=== PATIENT | male | born 1945 | race American Indian/Alaskan Native ===

== ENCOUNTER 2017-11-19 16:37 | Observation (INO) | payer MEDICARE, BC ==
--- NOTE | 2017-11-19 17:57 | ED PDOC ---
Arrival/HPI - General Chief Complaint: Chest Pain Time Seen by Provider: 11/19/17 16:49 Historian: Patient - History of Present Illness Narrative History of Present Illness (Text): 11/19/17 17:27 Patient is a 72 yo male states he has intermittent anterior sharp chest pain for "the past week". Pain is worse with certain movements and with breathing. States pain is not worse with exertion. No calf pain or swelling. No associated nausea or vomiting. Patient sent for evaluation with Dr. Gordon after pain has been persistent intermittently. 11/19/17 19:19 Past Medical History - Infectious Disease Hx of Infectious Diseases: None - Tetanus Immunization Tetanus Immunization: Unknown - Past Medical History Past Medical History: No Previous - Cardiac Hx Hypertension: Yes - Neurological Hx Neurological Disorder: No - HEENT Hx HEENT Disorder: No - Endocrine/Metabolic Hx Diabetes Mellitus Type 1: Yes (BORDERLINE) - Hematological/Oncological Hx Cancer: Yes (prostate) - Integumentary Hx Dermatological Disorder: No - Musculoskeletal/Rheumatological Hx Falls: No - Genitourinary/Gynecological Hx Genitourinary Disorders: Yes Hx Prostate Problems: Yes (PROSTATE CA WITH SURGERY) - Psychiatric Hx Depression: No Hx Emotional Abuse: No Hx Physical Abuse: No Hx Substance Use: No - Anesthesia Hx Anesthesia: No Hx Anesthesia Reactions: No Hx Malignant Hyperthermia: No - Suicidal Assessment Feels Threatened In Home Enviroment: No Family/Social History Family/Social History: Unknown Family HX Smoking Status: Former Smoker Hx Alcohol Use: Yes (OCCASIONAL WINE) Hx Substance Use: No Hx Substance Use Treatment: No Allergies/Home Meds Allergies/Adverse Reactions: Allergies No Known Allergies Allergy (Verified 09/26/14 05:03) Home Medications: Home Meds Medication Instructions Recorded Confirmed Doxazosin Mesylate 4 mg PO DAILY 09/12/13 11/19/17 Amlodipine Bes/Olmesartan Med 1 tab PO DAILY 11/19/17 11/19/17 [Benita 10 mg-40 mg] Doxazosin Mesylate 2 mg PO DAILY 11/19/17 11/19/17 Mirabegron [Myrbetriq] 50 mg PO DAILY 11/19/17 11/19/17 Nebivolol [Bystolic] 10 mg PO DAILY 11/19/17 11/19/17 Review of Systems - Review of Systems Constitutional: absent: Fatigue, Fevers Eyes: absent: Vision Changes ENT: absent: Hearing Changes Respiratory: absent: SOB, Cough Cardiovascular: Chest Pain. absent: Palpitations, Edema, Calf Pain, [place]IE[place] Gastrointestinal: absent: Abdominal Pain, Nausea, Vomiting, Appetite Changes Genitourinary Male: absent: Dysuria, Frequency, Hematuria Musculoskeletal: absent: Back Pain, Neck Pain Skin: absent: Rash Neurological: absent: Headache, Dizziness, Focal Weakness Endocrine: absent: Polyuria Hemo/Lymphatic: absent: Easy Bleeding Psychiatric: absent: Depression Physical Exam Vital Signs Reviewed: Yes Vital Signs Temp Pulse Resp BP Pulse Ox 11/19/17 22:37 60 18 128/71 99 11/19/17 20:37 65 18 129/65 99 11/19/17 16:37 98.1 F 55 L 18 126/53 L 98 Temperature: Afebrile Pulse: Regular Appearance: Positive for: Well-Appearing, Non-Toxic Mental Status: Positive for: Alert and Oriented X 3 Finger Stick Blood Glucose: 83 - Systems Exam Head: Present: Atraumatic, Normocephalic Pupils: Present: PERRL Extroacular Muscles: Present: EOMI Mouth: Present: Moist Mucous Membranes Pharnyx: No: ERYTHEMA Neck: Present: Normal Range of Motion. No: Meningeal Signs, MIDLINE TENDERNESS Respiratory/Chest: Present: Clear to Auscultation. No: Respiratory Distress Cardiovascular: Present: Regular Rate and Rhythm, Murmurs Abdomen: Present: Normal Bowel Sounds. No: Tenderness, Distention, Peritoneal Signs Rectal: No: Rectal Tenderness Back: No: CVA Tenderness, Midline Tenderness Lower Extremity: Present: Edema, NORMAL PULSES. No: CALF TENDERNESS Neurological: Present: Motor Func Grossly Intact, Normal Sensory Function Skin: Present: Warm Psychiatric: Present: Alert, Normal Insight, Normal Concentration Medical Decision Making ED Course and Treatment: 11/19/17 19:21 Patient is a 72 yo male with intermittent chest discomfort for several days. Worse with position, not worse with exertion. Currently pain remains intermittent. Patient saw [facility] earlier this week and reportedly had abnormal EKG and was told to follow-up with avionics test technician. He was advised by PMD to be evaluated by Dr. Gordon, avionics test technician. Initial EKG here unremarkable. First set troponin unremarkable. No abdominal pain noted. NO rash or edema noted. Plan to admit to telemetry observation with cardiology consultation. Reassessment Condition: Re-examined - Lab Interpretations Lab Results: 11/19/17 17:20 11/19/17 18:13 Lab Results 11/19/17 18:13: Sodium 142, Potassium 4.6, Chloride 105, Carbon Dioxide 27, Anion Gap 15, BUN 25 H, Creatinine 1.3, Est GFR ( Amer) > 60, Est GFR ( Non-Af Amer) 54, Random Glucose 92, Calcium 9.5, Total Bilirubin 0.3, AST 32, ALT 23, Alkaline Phosphatase 40, Lactate Dehydrogenase 452, Total Creatine Kinase 252 H, CK-MB (CK-2) 1.6, CK-MB (CK-2) % Cancelled, Troponin I < 0.01, Total Protein 7.2, Albumin 3.9, Globulin 3.3, Albumin/Globulin Ratio 1.2 11/19/17 17:20: PT 13.3 H, INR 1.16 H, APTT 28.0 11/19/17 17:20: WBC 5.6, RBC 4.74, Hgb 13.1 L, Hct 39.6 L, MCV 83.5, MCH 27.6, MCHC 33.1, RDW 15.2 H, Plt Count 150, MPV 12.5 H, Gran % 37.6 L, Lymph % (Auto) 48.5 H, [place] % (Auto) 11.8 H, Eos % (Auto) 1.6, Baso % (Auto) 0.5, Gran # 2.09, Lymph # (Auto) 2.7, [place] # (Auto) 0.7 H, Eos # (Auto) 0.1, Baso # (Auto) 0.03 11/19/17 17:11: POC Glucose (mg/dL) 83 - RAD Interpretation Radiology Orders: 11/19/17 17:00 CHEST PORTABLE [RAD] Stat Assistant Shift Supervisor: Radiologist - EKG Interpretation EKG Interpretation (Text): 11/19/17 19:21 EKG at 16:45 sinus bradycardia with first degree av block, no acute st elevations Interpreted by ED Physician: Yes Type: 12 lead EKG - Medication Orders Current Medication Orders: Amlodipine Besylate (Norvasc) 10 mg PO DAILY JASON Doxazosin Mesylate (Cardura) 4 mg PO DAILY JASON Famotidine (Pepcid) 40 mg PO HS JASON Losartan Potassium (Cozaar) 100 mg PO DAILY JASON Non-Formulary Medication (Mirabegron [Myrbetriq]) 50 mg PO DAILY JASON Non-Formulary Medication (Nebivolol [Bystolic]) 10 mg PO DAILY JASON Discontinued Medications Aspirin (Aspirin Chewable) 81 mg PO STAT STA Stop: 11/19/17 17:03 Last Admin: 11/19/17 17:13 Dose: 81 mg Disposition/Present on Arrival - Present on Arrival Any Indicators Present on Arrival: No History of DVT/PE: No History of Uncontrolled Diabetes: No Urinary Catheter: No History of Decub. Ulcer: No History Surgical Site Infection Following: None - Disposition Have Diagnosis and Disposition been Completed?: Yes Diagnosis: Chest pain Disposition: HOSPITALIZED Disposition Time: 19:10 Patient Plan: Admission, Observation, Telemetry Condition: FAIR
[2017-11-19 18:05] LABS: BASO # 0.03 K/mm3 (0.0-2.0); BASO % 0.5 % (0.0-3.0); EOS # 0.1 (0.0-0.7); EOS % 1.6 % (1.5-5.0); GRAN # 2.09 (1.4-6.5); GRAN % 37.6 % (50.0-68.0); HEMOGLOBIN 13.1 g/dL (14.0-18.0); LYMPH # 2.7 (1.2-3.4); LYMPH % 48.5 % (22.0-35.0); MEAN CELL VOLUME 83.5 fl (80.0-105.0); MEAN CORPUSCULAR HEMOGLOBIN 27.6 pg (25.0-35.0); MEAN CORPUSCULAR HGB CONC 33.1 g/dl (31.0-37.0); MEAN PLATELET VOLUME 12.5 fl (7.0-11.0); MONO # 0.7 (0.1-0.6); MONO % 11.8 % (1.0-6.0); RBC 4.74 10^6/uL (3.5-6.1); RED CELL DISTRIBUTION WIDTH 15.2 % (11.5-14.5); WHITE BLOOD COUNT 5.6 10^3/ul (4.5-11.0)
[2017-11-19 18:13] LABS: INR 1.16 (0.93-1.08); PROTHROMBIN TIME 13.3 SECONDS (9.4-12.5)
[2017-11-19 18:25] LABS: TROPONIN I < 0.01 ng/mL
[2017-11-19 18:38] LABS: ALB/GLOB RATIO 1.2 (1.1-1.8); ALBUMIN 3.9 g/dL (3.0-4.8); ALT/SGPT 23 U/L (7-56); AST/SGOT 32 U/L (17-59); BLOOD UREA NITROGEN 25 mg/dL (7-21); CALCIUM 9.5 mg/dL (8.4-10.5); GFR AFRICAN-AMERICAN > 60; GFR NON-AFRICAN AMERICAN 54
[2017-11-19 18:44] LABS: CK-MB 1.6 ng/mL (0.0-3.6)
--- NOTE | 2017-11-19 20:50 | CP.PCM.HP ---
<Misti Wan - Last Filed: 11/19/17 20:58> History of Present Illness - History of Present Illness History of Present Illness: CC: sternal pain Patient is a 72 y/o with pmhx of htn, prostate cancer s/p resection presenting with mid sternal chest pain for [address] Gordon his histopathologist and he was told to come to the ED for evaluation. Patient states the chest pain is intermittent, mostly when he tries to bend down, and is reproducible, radiated to the right sided chest a little, non radiating to the back or left arm. The chest pain is described as sharp. Patient states this is the first time he has chest pain like this, took OTC anti acid with no relief. The chest pain is non excertional, and is not there at rest unless when he tries to lean forward. Denies shortness of breath, denies pillow orthopnea, states he went to the gym today and walked on the treadmill for 30 minutes without difficulties. Patient denies abdominal pain, nausea, vomiting or diarrhea, no heart burn, no pain with urination. Denies cough. Patient had ekg, echo and stress test back on January 2016 with stress test being within normal limit, sinus bradycardia on ekg and echo with normal LVEF. PMHx: htn, prostate cancer s/p resection, overactive bladder. PSHx: prostate surgery, penile implant 5-6 years ago, tonsillectomy, nasal and uvula surgeries, left breast surgery back in 1962. FMHx: no cardiac history in the family, mom at age of 100 from old age, dad had gastric cancer. Kids with no medical problems. Social: Denies prior history of tobacco, admits to occasional alcohol, denies elicit drug use. 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 Allergy: NKDA Home meds: bystolic, doxazosin, myrbetriq, brad. Present on Admission - Present on Admission Any Indicators Present on Admission: No History of DVT/PE: No History of Uncontrolled Diabetes: No Urinary Catheter: No Decubitus Ulcer Present: No History Surgical Site Infection Following: None Review of Systems - Constitutional Constitutional: absent: Anorexia, Chills, Fatigue, Fever, Frequent Falls, Increased Appetite, Lethargy, Malaise, Night Sweats, Snoring, Sleep Apnea, Weight Loss, Weakness - EENT Eyes: absent: Change in Vision Ears: absent: Dizziness Nose/Mouth/Throat: absent: Nasal Congestion, Sore Throat - Cardiovascular Cardiovascular: Chest Pain. absent: Chest Pain at Rest, Chest Pain with Activity, Claudication, Diaphoresis, Dyspnea, Dyspnea on Exertion, Edema, Irregular Heart Rhythm, Leg Edema, Lightheadedness, Palpitations, Paroxysmal Nocturnal Dyspnea, Pedal Edema, Radiating Pain, Rapid Heart Rate, Slow Heart Rate - Respiratory Respiratory: absent: Cough, Dyspnea, Hemoptysis, Wheezing - Gastrointestinal Gastrointestinal: absent: Abdominal Pain, Belching, Bloating, Constipation, Cramping, Diarrhea, Dyspepsia, Dysphagia, Heartburn, Nausea - Genitourinary Genitourinary: absent: Dysuria - Musculoskeletal Musculoskeletal: absent: Muscle Weakness - Integumentary Integumentary: absent: Rash - Neurological Neurological: absent: Dizziness, Weakness - Psychiatric Psychiatric: absent: Anxiety, Change in Appetite, Depression - Endocrine Endocrine: absent: Fatigue, Palpitations - Hematologic/Lymphatic Hematologic: absent: Easy Bleeding Past Patient History - Infectious Disease Hx of Infectious Diseases: None - Tetanus Immunizations Tetanus Immunization: Unknown - Past Social History Smoking Status: Never Smoked Alcohol: None Drugs: Denies Home Situation {Lives}: With Family - CARDIAC Hx Hypertension: Yes - NEUROLOGICAL Hx Neurological Disorder: No - HEENT Hx HEENT Problems: No - ENDOCRINE/METABOLIC Hx Diabetes Mellitus Type 1: Yes (BORDERLINE) - HEMATOLOGICAL/ONCOLOGICAL Hx Cancer: Yes (prostate) - INTEGUMENTARY Hx Dermatological Problems: No - MUSCULOSKELETAL/RHEUMATOLOGICAL Hx Falls: No - GENITOURINARY/GYNECOLOGICAL Hx Genitourinary Disorders: Yes Hx Prostate Problems: Yes (PROSTATE CA WITH SURGERY) - PSYCHIATRIC Hx Depression: No Hx Emotional Abuse: No Hx Physical Abuse: No Hx Substance Use: No - SURGICAL HISTORY Hx Surgeries: Yes (PROSTATE SX) - ANESTHESIA Hx Anesthesia: No Hx Anesthesia Reactions: No Hx Malignant Hyperthermia: No Meds Allergies/Adverse Reactions: Allergies Allergy/AdvReac Type Severity Reaction Status Date / Time No Known Allergies Allergy Verified 09/26/14 05:03 Physical Exam - Constitutional Appears: No Acute Distress - Head Exam Head Exam: ATRAUMATIC, NORMAL INSPECTION, NORMOCEPHALIC - Eye Exam Eye Exam: EOMI, Normal appearance, PERRL. absent: Scleral icterus Pupil Exam: NORMAL ACCOMODATION - ENT Exam ENT Exam: Mucous Membranes Moist - Neck Exam Neck exam: Positive for: Normal Inspection. Negative for: Lymphadenopathy, Meningismus, Tenderness, Thyromegaly - Respiratory Exam Respiratory Exam: Clear to Auscultation Bilateral, NORMAL BREATHING PATTERN. absent: Prolonged Expiratory Phase, Rales, Rhonchi, Wheezes, Respiratory Distress, Stridor - Cardiovascular Exam Cardiovascular Exam: Bradycardia, REGULAR RHYTHM, RRR, +S1, +S2. absent: Tachycardia, Clicks, Diastolic murmur, Gallop, Irregular Rhythm, JVD, Rubs, Systolic Murmur - GI/Abdominal Exam GI & Abdominal Exam: Normal Bowel Sounds, Soft. absent: Distended, Firm, Guarding, Rebound, Rigid, Tenderness Additional comments: + obese abdomen. - Extremities Exam Extremities exam: Positive for: normal inspection. Negative for: pedal edema, tenderness - Back Exam Back exam: NORMAL INSPECTION - Neurological Exam Neurological exam: Alert, Oriented x3 - Psychiatric Exam Psychiatric exam: Normal Affect, Normal Mood - Skin Skin Exam: Dry, Intact, Normal Color Results - Vital Signs Recent Vital Signs: Last Vital Signs Temp 98.1 F 11/19/17 16:37 Pulse 55 L 11/19/17 16:37 Resp 18 11/19/17 16:37 BP 126/53 L 11/19/17 16:37 Pulse Ox 98 11/19/17 16:37 - Labs Result Diagrams: 11/19/17 17:20 11/19/17 18:13 Labs: Laboratory Results - last 24 hr 11/19/17 11/19/17 11/19/17 17:11 17:20 17:20 WBC 5.6 RBC 4.74 Hgb 13.1 L Hct 39.6 L MCV 83.5 MCH 27.6 MCHC 33.1 RDW 15.2 H Plt Count 150 MPV 12.5 H Gran % 37.6 L Lymph % (Auto) 48.5 H [place] % (Auto) 11.8 H Eos % (Auto) 1.6 Baso % (Auto) 0.5 Gran # 2.09 Lymph # (Auto) 2.7 [place] # (Auto) 0.7 H Eos # (Auto) 0.1 Baso # (Auto) 0.03 PT 13.3 H INR 1.16 H APTT 28.0 Sodium Potassium Chloride Carbon Dioxide Anion Gap BUN Creatinine Est GFR ( Amer) Est GFR (Non-Af Amer) POC Glucose (mg/dL) 83 Random Glucose Calcium Total Bilirubin AST ALT Alkaline Phosphatase Lactate Dehydrogenase Total Creatine Kinase CK-MB (CK-2) CK-MB (CK-2) % Troponin I Total Protein Albumin Globulin Albumin/Globulin Ratio 11/19/17 18:13 WBC RBC Hgb Hct MCV MCH MCHC RDW Plt Count MPV Gran % Lymph % (Auto) [place] % (Auto) Eos % (Auto) Baso % (Auto) Gran # Lymph # (Auto) [place] # (Auto) Eos # (Auto) Baso # (Auto) PT INR APTT Sodium 142 Potassium 4.6 Chloride 105 Carbon Dioxide 27 Anion Gap 15 BUN 25 H Creatinine 1.3 Est GFR ( Amer) > 60 Est GFR (Non-Af Amer) 54 POC Glucose (mg/dL) Random Glucose 92 Calcium 9.5 Total Bilirubin 0.3 AST 32 ALT 23 Alkaline Phosphatase 40 Lactate Dehydrogenase 452 Total Creatine Kinase 252 H CK-MB (CK-2) 1.6 CK-MB (CK-2) % Cancelled Troponin I < 0.01 Total Protein 7.2 Albumin 3.9 Globulin 3.3 Albumin/Globulin Ratio 1.2 - EKG Data EKG Interpreted by: Myself EKG shows normal: Sinus rhythm, [place] (normal), Intervals (normal), QRS complexes (normal), ST-T waves (normal) Rate: Bradycardia (1st degree av block.) Assessment & Plan - Assessment and Plan (Free Text) Assessment: Patient is a 72 y/o with pmhx of htn, overactive bladder, prostate cancer s/p resection presenting with mid sternal sharp chest pain for 5 days. Plan: 1) Chest pain r/o ACS versus Musculoskeletal pain - No exertional dyspnea, no chest pain on exertion - Tropx1 normal, will continue to trend - EKG with 1st degree AV block, which is chronic compared to ekg from 2016. - s/p ASA in the ED - Will obtain fasting lipid and hemoglobin a1c - ISSAC score of ~1 2) HTN- continue with Norvasc, will change olmesartan to losartan, continue with bystolic. 3) Overactive bladder- continue with Myrbetriq and doxazosin 4) DVT and gi prophylaxis: compressive device, and Pepcid. Patient seen, examined and case discussed with Dr Waters. - Date & Time Date: 11/19/17 Time: 20:10 <James Waters - Last Filed: 11/20/17 06:06> Results - Vital Signs Recent Vital Signs: Last Vital Signs Temp 97.8 F 11/19/17 23:48 Pulse 52 L 11/20/17 02:00 Resp 20 11/19/17 23:48 BP 158/79 H 11/19/17 23:48 Pulse Ox 99 11/19/17 22:37 - Labs Result Diagrams: 11/19/17 17:20 11/19/17 18:13 Labs: Laboratory Results - last 24 hr 11/20/17 11/20/17 01:00 05:00 Troponin I < 0.01 Urine Color Yellow Urine Appearance Clear Urine pH 6.0 Ur Specific [place] 1.020 Urine Protein Negative Urine Glucose (UA) Negative Urine Ketones Negative Urine Blood Negative Urine Nitrate Negative Urine Bilirubin Negative Urine Urobilinogen 0.2 Ur Leukocyte Esterase Negative Attending/Attestation - Attestation I have personally seen and examined this patient.: Yes I have fully participated in the care of the patient.: Yes I have reviewed all pertinent clinical information: Yes
[2017-11-20 00:03] VITALS: BMI 36.9
--- NOTE | 2017-11-20 00:30 | CARD ---
APPROVED REPORT EKG Measurement Heart [id number] <Conclusion> Sinus bradycardia with 1st degree AV block Otherwise normal ECG
[2017-11-20 05:23] LABS: URINE BILIRUBIN NEGATIVE (NEGATIVE); URINE BLOOD NEGATIVE (NEGATIVE); URINE GLUCOSE (UA) NEGATIVE (NEGATIVE); URINE LEUKOCYTE ESTERASE NEGATIVE Leu/uL (NEGATIVE); URINE NITRATE NEGATIVE (NEGATIVE); URINE PROTEIN NEGATIVE mg/dL (<30 mg/dL); URINE UROBILINOGEN 0.2 E.U./dL (<1 E.U./dL)
[2017-11-20 05:24] LABS: URINE APPEARANCE CLEAR (CLEAR); URINE COLOR YELLOW (YELLOW)
[2017-11-20 08:00] LABS: BASO # 0.05 K/mm3 (0.0-2.0); EOS # 0.1 (0.0-0.7); EOS % 2.2 % (1.5-5.0); GRAN # 1.36 (1.4-6.5); GRAN % 26.5 % (50.0-68.0); HEMOGLOBIN 13.2 g/dL (14.0-18.0); LYMPH # 3.1 (1.2-3.4); LYMPH % 61.3 % (22.0-35.0); MEAN CELL VOLUME 83.7 fl (80.0-105.0); MEAN CORPUSCULAR HEMOGLOBIN 27.2 pg (25.0-35.0); MEAN CORPUSCULAR HGB CONC 32.4 g/dl (31.0-37.0); MEAN PLATELET VOLUME 12.7 fl (7.0-11.0); MONO # 0.5 (0.1-0.6); RBC 4.86 10^6/uL (3.5-6.1); RED CELL DISTRIBUTION WIDTH 15.2 % (11.5-14.5); WHITE BLOOD COUNT 5.1 10^3/ul (4.5-11.0)
[2017-11-20 08:13] LABS: BLOOD UREA NITROGEN 19 mg/dL (7-21); CALCIUM 9.5 mg/dL (8.4-10.5); GFR AFRICAN-AMERICAN > 60; GFR NON-AFRICAN AMERICAN > 60; HDL CHOLESTEROL 31 mg/dL (29-60)
[2017-11-20 08:19] LABS: LDL CHOLESTEROL 67 mg/dL (0-129)
--- NOTE | 2017-11-20 08:43 | RAD ---
HISTORY: chest pain COMPARISON: 02/07/2016 FINDINGS: LUNGS: No active pulmonary disease. PLEURA: No significant pleural effusion identified, no pneumothorax apparent. CARDIOVASCULAR: Normal. OSSEOUS STRUCTURES: No significant abnormalities. VISUALIZED UPPER ABDOMEN: Normal. OTHER FINDINGS: None. IMPRESSION: No active disease.
[2017-11-20] MEDS ORDERED: NEBIVOLOL 10 MG PO SCH (10:00)
[2017-11-20] MEDS ORDERED: Mirabegron [Myrbetriq] 50 MG PO SCH (10:00)
--- NOTE | 2017-11-20 15:33 | CP.PCM.DIS ---
Provider - Provider Date of Admission: 11/19/17 19:56 Attending physician: Shellie Costa MD Primary care physician: Bryant Aguilera MD Time Spent in preparation of Discharge (in minutes): 35 Diagnosis - Discharge Diagnosis (1) Musculoskeletal chest pain Status: Acute Hospital Course - Lab Results Lab Results: Most Recent Lab Values WBC 5.1 10^3/ul (4.5-11.0) 11/20/17 05:30 RBC 4.86 10^6/uL (3.5-6.1) 11/20/17 05:30 Hgb 13.2 g/dL (14.0-18.0) L 11/20/17 05:30 Hct 40.7 % (42.0-52.0) L 11/20/17 05:30 MCV 83.7 fl (80.0-105.0) 11/20/17 05:30 MCH 27.2 pg (25.0-35.0) 11/20/17 05:30 MCHC 32.4 g/dl (31.0-37.0) 11/20/17 05:30 RDW 15.2 % (11.5-14.5) H 11/20/17 05:30 Plt Count 149 10^3/uL (120.0-450.0) 11/20/17 05:30 MPV 12.7 fl (7.0-11.0) H 11/20/17 05:30 Gran % 26.5 % (50.0-68.0) L 11/20/17 05:30 Lymph % (Auto) 61.3 % (22.0-35.0) H 11/20/17 05:30 [place] % (Auto) 9.0 % (1.0-6.0) H 11/20/17 05:30 Eos % (Auto) 2.2 % (1.5-5.0) 11/20/17 05:30 Baso % (Auto) 1.0 % (0.0-3.0) 11/20/17 05:30 Gran # 1.36 (1.4-6.5) L 11/20/17 05:30 Lymph # (Auto) 3.1 (1.2-3.4) 11/20/17 05:30 [place] # (Auto) 0.5 (0.1-0.6) 11/20/17 05:30 Eos # (Auto) 0.1 (0.0-0.7) 11/20/17 05:30 Baso # (Auto) 0.05 K/mm3 (0.0-2.0) 11/20/17 05:30 PT 13.3 SECONDS (9.4-12.5) H 11/19/17 17:20 INR 1.16 (0.93-1.08) H 11/19/17 17:20 APTT 28.0 Seconds (25.1-36.5) 11/19/17 17:20 Sodium 142 mmol/L (132-148) 11/20/17 05:30 Potassium 4.0 mmol/L (3.6-5.0) 11/20/17 05:30 Chloride 107 mmol/L (98-107) 11/20/17 05:30 Carbon Dioxide 26 mmol/L (21-33) 11/20/17 05:30 Anion Gap 13 (10-20) 11/20/17 05:30 BUN 19 mg/dL (7-21) 11/20/17 05:30 Creatinine 1.1 mg/dl (0.8-1.5) 11/20/17 05:30 Est GFR ( Amer) > 60 11/20/17 05:30 Est GFR (Non-Af Amer) > 60 11/20/17 05:30 POC Glucose (mg/dL) 83 mg/dL (65-110) 11/19/17 17:11 Random Glucose 82 mg/dL (70-110) 11/20/17 05:30 Calcium 9.5 mg/dL (8.4-10.5) 11/20/17 05:30 Total Bilirubin 0.3 mg/dL (0.2-1.3) 11/19/17 18:13 AST 32 U/L (17-59) 11/19/17 18:13 ALT 23 U/L (7-56) 11/19/17 18:13 Alkaline Phosphatase 40 U/L (38-126) 11/19/17 18:13 Lactate Dehydrogenase 452 U/L (333-699) 11/19/17 18:13 Total Creatine Kinase 252 U/L (35-230) H 11/19/17 18:13 CK-MB (CK-2) 1.6 ng/mL (0.0-3.6) 11/19/17 18:13 CK-MB (CK-2) % Cancelled 11/19/17 18:13 Troponin I < 0.01 ng/mL 11/20/17 05:30 Total Protein 7.2 g/dL (5.8-8.3) 11/19/17 18:13 Albumin 3.9 g/dL (3.0-4.8) 11/19/17 18:13 Globulin 3.3 gm/dL 11/19/17 18:13 Albumin/Globulin Ratio 1.2 (1.1-1.8) 11/19/17 18:13 Triglycerides 85 mg/dL (35-160) 11/20/17 05:30 Cholesterol 125 mg/dL (130-200) L 11/20/17 05:30 LDL Cholesterol Direct 67 mg/dL (0-129) 11/20/17 05:30 HDL Cholesterol 31 mg/dL (29-60) 11/20/17 05:30 Urine Color Yellow (YELLOW) 11/20/17 05:00 Urine Appearance Clear (CLEAR) 11/20/17 05:00 Urine pH 6.0 (4.7-8.0) 11/20/17 05:00 Ur Specific [place] 1.020 (1.005-1.035) 11/20/17 05:00 Urine Protein Negative mg/dL (<30 mg/dL) 11/20/17 05:00 Urine Glucose (UA) Negative mg/dL (NEGATIVE) 11/20/17 05:00 Urine Ketones Negative mg/dL (NEGATIVE) 11/20/17 05:00 Urine Blood Negative (NEGATIVE) 11/20/17 05:00 Urine Nitrate Negative (NEGATIVE) 11/20/17 05:00 Urine Bilirubin Negative (NEGATIVE) 11/20/17 05:00 Urine Urobilinogen 0.2 E.U./dL (<1 E.U./dL) 11/20/17 05:00 Ur Leukocyte Esterase Negative [place]/uL (NEGATIVE) 11/20/17 05:00 - Hospital Course Hospital Course: Upon admission: Patient is a 72 y/o with pmhx of htn, prostate cancer s/p resection presenting with mid sternal chest pain for [address] Gordon his brush holder inspector and he was told to come to the ED for evaluation. Patient states the chest pain is intermittent, mostly when he tries to bend down, and is reproducible, radiated to the right sided chest a little, non radiating to the back or left arm. The chest pain is described as sharp. Patient states this is the first time he has chest pain like this, took OTC anti acid with no relief. The chest pain is non excertional, and is not there at rest unless when he tries to lean forward. Denies shortness of breath, denies pillow orthopnea, states he went to the gym today and walked on the treadmill for 30 minutes without difficulties. Patient denies abdominal pain, nausea, vomiting or diarrhea, no heart burn, no pain with urination. Denies cough. Patient had ekg, echo and stress test back on January 2016 with stress test being within normal limit, sinus bradycardia on ekg and echo with normal LVEF. Hospital Course: Patient was admitted to rule out ACS. Troponins were negative x3 and no ST changes seen on ECG, however it showed sinus bradycardia with 1st degree AV block. Cardiology (Dr. Gordon) was consulted, who cleared the patient for discharge with request to follow up for outpatient echocardiogram. Patient was started all home meds for hospital stay. Upon discharge: Patient was instructed to follow up with Dr. Gordon for outpatient echocardiogram , as well as his PCP. Please note that this is a summary of events. For more details, please see complete medical record. Discharge Exam - Head Exam Head Exam: ATRAUMATIC, NORMAL INSPECTION, NORMOCEPHALIC - Eye Exam Eye Exam: EOMI, Normal appearance, PERRL - ENT Exam ENT Exam: Mucous Membranes Moist - Respiratory Exam Respiratory Exam: Clear to PA & Lateral, NORMAL BREATHING PATTERN, UNREMARKABLE - Cardiovascular Exam Cardiovascular Exam: RRR, +S1, +S2 - GI/Abdominal Exam GI & Abdominal Exam: Normal Bowel Sounds, Unremarkable - Extremities Exam Extremities exam: normal inspection - Neurological Exam Neurological exam: Alert, Oriented x3 - Psychiatric Exam Psychiatric exam: Normal Affect, Normal Mood - Skin Skin Exam: Dry, Intact, Normal Color, Warm Discharge Plan - Discharge Medications Prescriptions: Losartan [Cozaar] 100 mg PO DAILY #30 tab - Follow Up Plan Condition: GOOD Disposition: HOME/ ROUTINE Instructions: Chest Pain (ED), Chest Pain (DC), Chest Pain (GEN) Additional Instructions: Please follow up with your brush holder inspector (Dr. Gordon) within 1 week of discharge for outpatient echocardiogram. Referrals: Bryant Aguilera MD [Primary Care Provider] - Cecil Gordon MD [Staff Provider] -
[2017-11-20 17:13] VITALS: BP 121/83; PULSE 90; RESP 19; TEMP 98.8; O2SAT 95
--- NOTE | 2017-11-20 23:37 | CON ---
DATE: 11/20/2017 CARDIOLOGY CONSULTATION HISTORY OF PRESENT ILLNESS: The patient is a 72-year-old male, who presents with focal chest discomfort, which increases with movement of his upper chest and deep breath. The patient had a stress test done a year and a half ago, which was unremarkable with normal LV function. The patient's cardiac risk factors are hypertension. No diabetes mellitus. SOCIAL HISTORY: The patient does not smoke. REVIEW OF SYSTEMS: Fourteen-point review of systems is reviewed in detail. No cardiac symptomatology is noted. His risk factors includes sedentary lifestyle. PHYSICAL EXAMINATION: VITAL SIGNS: Blood pressure 150/77, heart rates in the 60s. NECK: Negative JVD. LUNGS: Without rales. HEART: With S1 and S2. EXTREMITIES: Without edema. LABORATORY DATA: Troponins are negative x3. Cholesterol is 125, hemoglobin is 13.2. IMPRESSION: 1. Atypical chest pain. 2. No evidence for acute coronary syndrome. 3. Hypertension. 4. Sedentary lifestyle. 5. Likely his chest pain is musculoskeletal in origin. PLAN: Given these findings, the patient is stable from a cardiac perspective for discharge. Follow up as an outpatient has been arranged for the patient. An outpatient stress test next week as well. Cecil Gordon MD
== END 2017-11-20 17:13 | disposition home or self-care (01) ==
LOC: ED 16:37 → ERH 19:56 → 3RNO 22:58
PROVIDERS: ADMIT Internal Medicine; ATTEND Internal Medicine
DX: R07.89 Other chest pain (principal); I10 Essential (primary) hypertension; N32.81 Overactive bladder; I44.0 Atrioventricular block, first degree; Z85.46 Personal history of malignant neoplasm of prostate; Z80.0 Family history of malignant neoplasm of digestive organs
CPT/HCPCS: 36415; 71045; 80048; 80053; 80061; 81003; 82550; 82553; 82948; 83036; 83615; 84484; 85025; 85610; 85730; 93005; 99285; G0378

== ENCOUNTER 2018-01-21 07:39 | Day surgery (SDC) | payer MEDICARE, BC ==
[2018-01-15 10:35] VITALS: BMI 36.3
[2018-01-21 08:31] VITALS: RESP 14
[2018-01-21] MEDS ORDERED: Propofol 10 mg/ml Inj (20 ML) ONE ×2 (10:50→11:21)
[2018-01-21] MEDS ORDERED: Sodium Chloride 0.9% 1,000 ML IV SCH (11:45)
[2018-01-21 12:14] VITALS: PULSE 59; O2SAT 97
[2018-01-21 12:58] VITALS: BP 143/62; TEMP 98.4
== END 2018-01-21 14:50 | disposition home or self-care (01) ==
LOC: ENDO 07:39
PROVIDERS: ATTEND Internal Medicine Gastroenterology
DX: Z12.11 Encounter for screening for malignant neoplasm of colon (principal); K57.30 Diverticulosis of large intestine without perforation or abscess without bleeding; K64.8 Other hemorrhoids
CPT/HCPCS: 45378; J2704; J7040 ×2

== ENCOUNTER 2018-12-08 10:57 | Outpatient (CLI) | payer MEDICARE, BC | END 2018-12-08 10:58 | disposition home or self-care (01) | LOC: RAD 10:57 ==